=== PATIENT | male | born 1960 | race African-American/Black ===

== ENCOUNTER 2019-12-12 17:16 | Inpatient (IN) | payer OTHER ==
[~2019-12-12] VITALS: Ht 182.9 cm; Wt 101.6 kg
[~2019-12-12 17:16] MED LIST: NAPROSYN500 MG PO
--- NOTE | 2019-12-12 18:19 | NUR ---
PATIENT ARRIVED ON UNIT AT 1720 FROM [facility]. PATIENT ALERT AND ORIENTED X 4 - ABLE TO MAKE NEEDS KNOWN. PATIENT 59 YEAR OLD MALE WHO HAS HISTORY OF DEPRESSION WITH S/I. REPORTS HE HAS BEEN FEELING DEPRESSED RECENTLY AND CHECKED INTO [facility] LAST NIGHT TO DO SOME CRACK COCAINE IN AN ATTEMPT TO CHEER HIMSELF UP. POLICE WERE CALLED WHEN THE PATIENT TOLD THE MOT STAFF THE HE WANTED TO KILL HIMSELF. HER PLANNED TO OVERDOSE ON MEDICATIONS. PATIENT CONTINUED TO ENDORSE S/I AT ER. HAS BEEN TAKING MEDICATION INTERMITTENTLY BUT IS UNSURE WHAT THEY WERE. PATIENT OCCASIONAL SMOKER - USES CRACK COCAINE DAILY. HISTORY OF CVA - UNABLE TO DETERMINE TIME AND HYPERLIPIDEMAI - STATES AMBULATES WITH CANE. PATIENT SUFFERS FROM HTN - BPH AND GERD. PATIENT LIVES WITH PARENTS AND ON DISABILITY. ALL LABS DONE AT [facility] AND RESULTS IN CHART. PATIENT LAST BLOOD PRESSURE 137/76 WITH PULSE OF 80. PATIENT HAS TENDENCY OF BLOOD PRESSURES RUNNING HIGH. PATIENT NEG FOR COVID - TESTED AT [facility] AND OUR FACILITY WELL. EKG DONE AND IN CHART.
[2019-12-12] MEDS ORDERED: ASA81BEC PO (18:21)
[2019-12-12] MEDS ORDERED: NORVASC 2.5 MG2.5 M1 PO (18:22)
--- NOTE | 2019-12-12 18:23 | NUR ---
PATIENT'S ADMIT MEDICATION CLARIFIED WITH DR. FLORES. HE SAID NO TO PROPRANOLOL, SEROQUEL, VIT D, AND OMEPRAZOLE. HOSPITALIST DR. GOMEZ CONSULTED.
[2019-12-12 18:28] VITALS: BP 185/112
--- NOTE | 2019-12-12 22:50 | NUR ---
ASSUMED CARE ON 12/12/19 @ 19:00, IN BED ORIENTED TO PERSON, PLACE AND DISORIENTED TO TIME. WORRIED ABOUT HIS CAR. RATES DEPRESSION @ 02/03, AND ANXIETY @12/04. REPORTS WANTS TO GO TO "[employer]", WORRIED ABOUT CAR AND REPORTS CAR IS [address] [place] [facility]. TOOK MEDS WHOLE WITH WATER. USING A WALKER TO AMBULATE. TAKES MEDS WHOLE WITH WATER. WILL CONTINUE TO MONITOR Q 12 MINUTES FOR PATIENT SAFETY.
[2019-12-13 05:42] VITALS: BP 185/112
--- NOTE | 2019-12-13 09:59 | NUR ---
FAXED FACE SHEET TO JESÚS AT [facility] TO SEE IF PT'S MEDICAID IS ACTIVE RECEIVED CONFIRMATION.
--- NOTE | 2019-12-13 15:07 | NUR ---
Assume patient care around 7am. patient alert and cooperative. denied pain, no n/v, walked in the [address] with steady gait; taking pills whole with water. health assessment without abnormalities other than previously noted. patient is lying in bed with eyes closed, chest up and down. will keep monitoring.
[2019-12-13 19:53] VITALS: BP 152/92
[2019-12-13 22:00] VITALS: BP 152/92
--- NOTE | 2019-12-14 01:11 | NUR ---
Assumed care of patient this pm shift. Patient in good spirits. Patient alert and oriented to self, place, time, and situation. Patient denies pain. Patient denies hi/si. Patient takes medications whole with fluids. Patients assessment shows clear breath sounds, active bowel sounds, and s1 s2 heard with auscultation. Patient ambulates without assistance and has a steady gate. We will continue to monitor per protocol.
[2019-12-14 07:48] VITALS: BP 147/94
--- NOTE | 2019-12-14 09:37 | NUR ---
0700 ASSUMED CARE OF PATIENT, PATIENT IN ROOM AWAKE AT THAT TIME. 0800 PATIENT IN DAYROOM SITTING IN CHAIR FOR BREAKFAST. MEDICATIONS TAKEN WHOLE WITHOUT DIFFICULTY. PATIENT WATCHING TV . WILL CONTINUE TO OBSERVE.
--- NOTE | 2019-12-14 11:51 | NUR ---
JAYLYN reviewed pt's chart and saw that he receives psych services at [facility]. JAYLYN contacted JALYYN to inquire who is psych doctor is. No answer at the line. JAYLYN left a msg. JAYLYN team will continue to follow pt during his stay on this unit.
--- NOTE | 2019-12-14 18:46 | NUR ---
PATIENT STATES " I DO NOT BELONG HERE, I AM NOT CRAZY" PATIENT HAS INCREASED ANXIETY WITH NOISE OF ALL THE PATIENTS. PATIENT IS CALM AND COOPERATIVE WITH NO BEHAVIORS NOTED. DENIES SI/HI
[2019-12-14 19:33] VITALS: BP 166/102
--- NOTE | 2019-12-14 22:50 | H ---
[facility] [place] [address] HISTORY AND PHYSICAL Name: LOKESH ANDERSON Room #: 519B-B ADM IN M.R.#: [id number] Admission: 12/12/19 Attend Phys: Cain Kay DO Discharge: Date of : 56 Report #: [id number] THIS REPORT FOR: cc: FAM - No family physician/PCP FAM - Family physician unknown Cain Kay DO ~ CC: Cain QUINONES physician/PCP FAM unknown DATE OF SERVICE: 12/13/2019 INPATIENT PSYCHIATRIC EVALUATION ATTENDING PHYSICIAN: Cain Kay DO. FORENSIC DOCUMENT EXAMINER: Benjamin Jackson MD REASON FOR ADMISSION: Suicidal ideation in the setting of concomitant cocaine use due to chronic stimulant use disorder. SOURCES OF INFORMATION: Records from [facility], interview with the patient, charting notes from staff at [facility]. HISTORY OF PRESENT ILLNESS: A 59-year-old black male, , father of 3, currently living with his parents, had summon authorities yesterday due to suicidal ideation. The patient admits to a recent as in the last couple of days of cocaine use, he usually has 2 people, he knows who are chronic users of cocaine that bring him the substance when he summons them. The patient reports he smokes 2 cigarettes a day, does not have an alcohol problem. Denies other recreational drugs. The patient is well known for his cocaine use disorder. He has had several hospitalization treatments. He reports under Dr. Finn at [facility]. 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 His speech is slurred to a degree. [facility] gets individual and group counseling. I am not clear exactly who is a psychiatric medication provider is there. REVIEW OF SYSTEMS: From the Emergency Room at [facility]: CONSTITUTIONAL: Negative. SKIN: Negative. EYES: Negative. EAR, NOSE, MOUTH, THROAT: Negative. RESPIRATORY: Negative. [facility] [address] [place] [address] HISTORY AND PHYSICAL Name: LOKESH ANDERSON Room #: 519B-B ADM IN M.R.#: [id number] Admission: 12/12/19 Attend Phys: Cain Kay DO Discharge: Date of : 56 Report #: [id number] CARDIOVASCULAR: Negative. GASTROINTESTINAL: Negative. GENITOURINARY: Negative. MUSCULOSKELETAL: Uses a walker. NEUROLOGIC: Negative. PSYCHIATRIC: He was positive for the SI, not now. ENDOCRINE: Negative. HEMATOLOGIC-LYMPHATIC: Negative. ALLERGIES- IMMUNOLOGIC: Negative. HOME MEDICATIONS: Are noted to be tamsulosin 0.8 mg p.o. daily, sertraline 150 mg p.o. daily, Seroquel 200 mg tablet, omeprazole 40 mg tablet, ergocalciferol 50,000 International Units oral tablet. Also, Protonix, amlodipine, aspirin, atorvastatin, finasteride, gabapentin, prazosin, propranolol. After reconciling that as I think there is confusion, he is taking prazosin 1 mg at home, I have already increased that to 2 mg here. Sertraline is currently 150 mg daily, we will continue that dose. Finasteride 5 mg p.o. daily, atorvastatin 20 mg oral daily, aspirin 81 mg p.o. daily, amlodipine 10 mg oral daily, Protonix 40 mg oral daily, trazodone 50 mg p.o. at bedtime, I will make that p.r.n. Tamsulosin 0.8 mg p.o. daily. Gabapentin is currently 300 mg b.i.d., I think we will increase that to 400 mg p.o. b.i.d. given its properties with addiction and mood stabilization. I did have discussion with him about the amount of medications and frequency of taking them if that is a known trigger with substance use disorder patients so that certainly is a consideration in approaching his pharmacology. PAST MEDICAL HISTORY: Reports cerebrovascular accident, osteoarthritis, they put him on social security disability. Additional medical history information is as follows and the stroke type is cerebellar stroke, gastroesophageal reflux disease, benign prostatic hypertrophy, hypertension, hyperlipidemia, history of MRSA infection, patellofemoral syndrome, vitamin D deficiency and past history of obesity, though now he is borderline with a BMI of 30.4. He had a negative COVID-19 test to [facility]. PAST SURGICAL HISTORY: Includes tonsillectomy and bilateral knee arthrocentesis. SOCIAL HISTORY: Lives with his parents, but wanting to move out. He states he does no longer have a home. He would like to live in the [facility]. I did discuss with him I was not sure the current sobriety requirement. The hospitalist noted he was a current every-day smoker, smokes a quarter of a pack until meet 2 cigarettes. He has a 15 plus pack year history of smoking. He denies any alcohol use; however, reports struggling with alcoholism prior to 5 years ago. In addition to the crack cocaine use when he is depressed, he reports marijuana use. Also, the patient noted he began using cocaine in his 30s. He denies substance use disorders in the family. Mom is healthy. Dad is [address] [place] [address] HISTORY AND PHYSICAL Name: LOKESH ANDERSON Room #: 519B-B ADM IN M.R.#: [id number] Admission: 12/12/19 Attend Phys: Cain Kay DO Discharge: Date of : 56 Report #: [id number] with cardiac disease. Both parents were living so that fact we will need to clarify, has one sister who has unknown medical conditions. Three children, he states are 7, 10 and 17. I am surprised he has a 7-year-old as he gave me a somewhat inconsistent history of being for 4 years, but all the children have the same mother. ALLERGIES: No known allergies. Physical exam was grossly normal, done by Ms. Kulkarni. I will review the laboratories that were obtained at [facility] for this patient. These were done on 12/12/2019. Sodium 139, potassium 3.9, chloride 102, bicarbonate 21, anion gap 16, glucose 92, BUN 13, creatinine 0.68, GFR -Chadian greater than 9 and calcium 8.7, osmolality 288. NT-proBNP 310. Troponin T less than 0.01, white count 11.60, hemoglobin 14.3, hematocrit 43.8, platelets 176,000. Urine drug screen was positive for cocaine, otherwise negative. It looks like they did do a chest x-ray, I am looking for the results of that and I do not have that handy. The patient was not complaining of respiratory symptomatology and lungs were clear. There was an electrocardiogram done at [facility] yesterday at 0800 hours. It showed a ventricular rate 66, MD interval 150, QTC 400. He was in sinus rhythm, no signs of STEMI seen by myself or the Emergency Room physician that signed it. CURRENT PSYCHIATRIC TREATMENT: Sees Dr. James at [facility], has a residential case manager. Apparently, he checked into a hotel last night and used crack cocaine to address his depression, so I did not do it at his parents' house and he feels helpless with thoughts of overdosing on medications, again that is reason for admission, looks like the patient requested [email or web address], but they reported back to [place] that they did not have a bed. Vital signs today are as follows: Temperature 98.2, pulse 79, respirations 18, BP was initially 185/112 at 5:40 this morning and at 8:56, it had decreased to 135/88. I would kind of question that blood pressure, it was the same that was recorded at 6:30 last night. It looks like he has not been seen here at [place] since 2016. Interestingly, in 2016, the screen positive for cocaine. Also in 2010, it looks like he was referred to [place] for suicidal ideation. Interestingly, does not look like they had a positive drug screen back in 2010. PHYSICAL EXAMINATION: Uses a walker somewhat older than stated age appearing. MENTAL STATUS EXAMINATION: This is a well-developed, unkempt black male appearing older than stated age. Attention fair. Concentration fair. Speech [facility] [address] [place] [address] HISTORY AND PHYSICAL Name: ANDERSON,LOKESHLEANDRO MENDEZ Room #: 519B-B ADM IN M.R.#: [id number] Admission: 12/12/19 Attend Phys: Cain Kay, DO Discharge: Date of : 56 Report #: [id number] slurred. Reports this is baseline. No psychomotor agitation. No psychomotor retardation. Thought process is linear and goal directed. Thought content focused on discharge, going to [facility], subject matter such as this. Denied suicidal or homicidal ideation. Endorse some hopelessness. Denied hopelessness. Memory not formally tested today. I did order common evaluation of living skills as he is wanting to live fairly independently. Mood and affect were congruent, constricted. Reduced range. Insight limited. Judgment limited. Fund of knowledge, no greater than average. FORMULATION: A 59-year-old black male admitted for suicidal ideation, status post recent cocaine ingestion. The patient does have chronic major depression. [facility] this as well as substance use disorder. DIAGNOSES: At this time, major depressive disorder, recurrent, at least moderate degree; substance use disorder for stimulants, cocaine, severe with repeated relapse despite addiction; Psychiatry hospitalization and intervention at least twice in the past at [facility]. PLAN: Evaluate, stabilize, obtain collateral. Regarding his medications, he did endorse being bothered by nightmares, so increase his prazosin at 2 mg at night. Regarding relapse prevention and mood stabilization, I increased the gabapentin from 300 b.i.d. to 400 b.i.d. I am avoiding a third dose during the day due to the more ingestion of pills I view as a more trigger for his addiction proclivity to use. ESTIMATED LENGTH OF STAY: 3-5 days. POSITIVES: He is insured, has some supportive family. NEGATIVES: Chronic cocaine use. He already has end-organ damage, likely from his cocaine, namely the stroke and the habitual nature of his use will be difficult to turn him away from. Time spent on interview, review of records, coordination of care is at least 60 minutes. <ELECTRONICALLY SIGNED> By: Cain Kay, 12/14/19 [id number] Cain Kay DO /nt
[2019-12-14 23:05] VITALS: BP 152/88
--- NOTE | 2019-12-15 05:14 | NUR ---
Assumed care of pt @ 1900. Pt calm et cooperative with pleasant demeanor this shift. Took medications whole without difficulty. Isolated in room most of shift. Ambulates the halls ad gamal with assistance of walker et steady gait. B/P elevated but was WNL on recheck. Health assessment with no abnormalities noted at this time. Denies SI/HI. Currently resting in bed with eyes closed. Will continue to monitor per protocol.
[2019-12-15 09:36] VITALS: BP 160/103
--- NOTE | 2019-12-15 14:36 | NUR ---
JAYLYN contacted [facility] and confirmed that pt has a psych appt with Dr. Barajas December 27 @ 12:40 via phone. She also contacted the [facility] multiple times to identify their intake process for substance abuse tx and did not get a response. JAYLYN spoke with pt and asked where he wants to d/c too. He explained that he has burned his bridge with his mother and is not at this time welcome. He asked SW to call his mom Anisa Clayton at [phone].
[2019-12-15 16:45] VITALS: BP 160/103
--- NOTE | 2019-12-15 17:45 | NUR ---
PATIENT COMMUNICATING WITH OTHERS WELL, PATIENT WATCHING TV AT THIS TIME. PATIENT AWARE OF NOTIFING STAFF WHEN NEEDING TO GO TO ROOM OR AMBULATE. PATIENT IS A FALL RISK. YELLOW SHIRT ON, YELLOW SOCK IN PLACE WITH CHAIR/BED ALARM IN PLACE. PATIENT IS AWARE OF BEING DC'D TOMORROW. PATIENT DENIES NEEDS.
[2019-12-15 19:40] VITALS: BP 159/91
[2019-12-15 21:15] VITALS: BP 159/91
--- NOTE | 2019-12-16 04:29 | NUR ---
Assumed pt care at 1900. Pt A/OX4,VSS.Denies SI/HI on assessment and verbalized feeling excited about discharge. Up with a RW,needs reminders to wait for staff before getting up. Denies pain on assessment but reports he has arthritis to meghann knees and has been on disability because of that. Fall precautions in place,pt been resting w/o any distress after taking HS meds. Will continue to monitor pt.
[2019-12-16 07:50] VITALS: BP 149/84
[2019-12-16 08:30] VITALS: BP 149/84
--- NOTE | 2019-12-16 09:16 | NUR ---
0700 ASSUMED CARE OF PATIENT, PATIENT IN ROOM AT THAT TIME. PATIENT OUT TO DAYROOM FOR BREAKFAST SITTING AT TABLE AND COMMUNICATING WELL WITH OTHERS. DENIES NEEDS AT THAT TIME. 0910 PATIENT ASKS TO SHAVE AND GET READY TO GO HOME. PATIENT DENIES NEEDS LUNG SOUNDS CLEAR, BS ACTIVE, DENIES SI/HI. PATIENT AMBULATES WITH WALKER WITH STEADY GAIT. DC IS SCHEDULED FOR 10AM . WILL CONTINUE TO OBSERVE
[2019-12-16] MEDS ORDERED: LIPITOR 20 MG T20 M1 PO (09:41)
[2019-12-16] MEDS ORDERED: FLOMAX0.4 MG PO (09:41)
[2019-12-16] MEDS ORDERED: NORVASC10 MG PO (09:42)
[2019-12-16] MEDS ORDERED: PRAZOSIN HCL1 MG PO (09:42)
[2019-12-16] MEDS ORDERED: ASPIR 8181 MG PO (09:43)
[2019-12-16] MEDS ORDERED: NEURONTIN 400400 M1 PO (09:43)
[2019-12-16] MEDS ORDERED: PROTONIX40 M1 PO (09:44)
[2019-12-16] MEDS ORDERED: TRAZODONE HCL50 MG PO (09:44)
[2019-12-16] MEDS ORDERED: ZOLOFT100 MG PO (09:44)
[2019-12-16] MEDS ORDERED: PROSCAR 5MG TABL5 MG PO (09:45)
--- NOTE | 2019-12-16 10:15 | NUR ---
JAYLYN D/C note JAYLYN faxed pt's discharge docs to [facility].
--- NOTE | 2019-12-16 10:53 | NUR ---
1000 DC INSTRUCTIONS GIVEN TO PATIENT, PATIENT VOICED UNDERSTANDING. SCRIPTS FAXED TO PATIENT PHARMACY [facility]. PATIENT DC VIA WC TO [facility] ACCOMPANIED BY STAFF. PATIENT BELONGING ARE IN HAND (BAGS X2) .
--- NOTE | 2019-12-19 17:14 | D ---
[facility] [place] [address] DISCHARGE SUMMARY Name: LOKESH ANDERSON Room #: 519B-B DIS IN M.R.#: [id number] Admission: 12/12/19 Attend Phys: Cain Kay DO Discharge: 12/16/19 Date of : 56 Report #: [id number] THIS REPORT FOR: cc: FAM - No family physician/PCP FAM - Family physician unknown Cain Kay DO ~ THIS REPORT FOR: //name// CC: Cain QUINONES physician/PCP FAM unknown DATE OF SERVICE: 12/16/2019 INPATIENT PSYCHIATRIC DISCHARGE SUMMARY ATTENDING PSYCHIATRIST: Cain Kay DO. COMPENSATION/BENEFITS SPECIALIST: Satnam Luciano MD DISCHARGE DIAGNOSES: Major depressive disorder, recurrent, severe degree, improved; substance use disorder for cocaine, moderate to severe degree; cocaine intoxication, resolved. ADDITIONAL DIAGNOSES: Hypertension, hyperlipidemia, tobacco use disorder, insomnia, vitamin D deficiency, gastroesophageal reflux disease, history of cerebellar stroke. DISCHARGE DIET: Heart healthy. ACTIVITY LEVEL: As tolerated. Use of walker is encouraged. The patient will be discharging to her mother's home. The patient has crisis information from [facility] where he is a client. The patient has psychiatric followup, noted to be 12/27 at 12:[address] Barajas at [facility], living initially with his mother, Anisa. DISCHARGE MEDICATIONS: Which were faxed to the [facility] at [facility] does request tamsulosin 0.8 mg at bedtime; atorvastatin 20 mg p.o. daily for hyperlipidemia; prazosin 2 mg p.o. at bedtime for nightmares, this was an increase of dose from 1 to 2 mg this admission; amlodipine 10 mg p.o. daily for hypertension; aspirin 81 mg p.o. daily for heart protection; gabapentin 400 mg p.o. twice per day for relapse prevention, anxiety and mood stabilization; sertraline 150 mg p.o. daily for depression; trazodone 50 mg p.o. at bedtime; Protonix 40 mg p.o. daily for GERD and finasteride 5 mg p.o. daily for BPH. [facility] [address] [place] [address] DISCHARGE SUMMARY [facility] Room #: 519B-B DIS IN .R.#: [id number] Admission: 12/12/19 Attend Phys: Cain Kay DO Discharge: 12/16/19 Date of : 56 Report #: [id number] REASON FOR ADMISSION: Back on the or so, a 59-year-old black male sent from [facility] to the [facility]. The patient was apparently in a motel room, had done cocaine, feeling depressed, suicidal and called 911. HOSPITAL COURSE: The patient was admitted to Geriatric Psychiatry Unit. The patient's medications were reviewed. He was having breakthrough nightmares even when he did not use cocaine, so increased the prazosin from 1 to 2 mg at bedtime, tolerated this well; gabapentin was at a lower dose, I think 200 or 300 mg a day, increased this to 400 mg a day to get a little more anxiolytic effect; sertraline continue 150 mg p.o. daily. His depression precipitously improved. The patient first of all lagged in the milieu, in particular with large amount of dementia. The patient's outreach and education social worker made aftercare arrangements with [facility]. The patient is desiring new housing; however, this is difficult to get in a short period of time right now. PHYSICAL EXAMINATION: VITAL SIGNS: At time of discharge, temperature 36.4, pulse 73, respirations 18, BP 149/84, O2 sat 97%. MUSCULOSKELETAL: He ambulates with walker. MENTAL STATUS EXAMINATION: This is a well-developed, tall black male, appearing at least stated age. Attention fair. Concentration fair. Speech, minor abnormalities at times, but generally coherent. Mood and affect were congruent and euthymic, future oriented. Denied SI or HI. Denied auditory, visual, or tactile hallucinations. Memory was not formally tested. Insight fair to limited. Judgment fair. Fund of knowledge lower than low average. PROGNOSIS: For this patient is guarded and will depend on him getting stable housing, engaging with the psychiatrist and primary care physician. <ELECTRONICALLY SIGNED> By: Cain Kay DO 12/19/19 1714 [id number] Cain Kay DO /nt
== END 2019-12-16 10:45 | disposition home or self-care (01) | DRG 885 ==
LOC: ER 17:16 → EDSTATUS 17:22 → SBH 17:27
PROVIDERS: ADMIT Psychiatry & Neurology Psychiatry
DX: F33.2 Major depressive disorder, recurrent severe without psychotic features (principal); R45.851 Suicidal ideations; T40.5X5A Adverse effect of cocaine, initial encounter; I10 Essential (primary) hypertension; E78.5 Hyperlipidemia, unspecified; K21.9 Gastro-esophageal reflux disease without esophagitis; F17.210 Nicotine dependence, cigarettes, uncomplicated; M19.90 Unspecified osteoarthritis, unspecified site; F14.10 Cocaine abuse, uncomplicated; F12.10 Cannabis abuse, uncomplicated; E55.9 Vitamin D deficiency, unspecified; N40.0 Benign prostatic hyperplasia without lower urinary tract symptoms; E66.9 Obesity, unspecified; F41.9 Anxiety disorder, unspecified; G47.00 Insomnia, unspecified; F10.20 Alcohol dependence, uncomplicated; Y92.89 Other specified places as the place of occurrence of the external cause; Z86.73 Personal history of transient ischemic attack (TIA), and cerebral infarction without residual deficits; Z68.30 Body mass index [BMI] 30.0-30.9, adult; Z90.49 Acquired absence of other specified parts of digestive tract; Z82.49 Family history of ischemic heart disease and other diseases of the circulatory system
CPT/HCPCS: 10880

== ENCOUNTER 2020-07-19 08:40 | Emergency (ER) | payer OTHER ==
[~2020-07-19] VITALS: Ht 182.9 cm; Wt 109.3 kg
[~2020-07-19 08:40] MED LIST changes: +ASA81BEC PO; +ASPIR 8181 MG PO; +FLOMAX0.4 MG PO; +LIPITOR 20 MG T20 M1 PO; +NEURONTIN 400400 M1 PO; +NORVASC 2.5 MG2.5 M1 PO; +NORVASC10 MG PO; +PRAZOSIN HCL1 MG PO; +PROSCAR 5MG TABL5 MG PO; +PROTONIX40 M1 PO; +TRAZODONE HCL50 MG PO; +ZOLOFT100 MG PO
[2020-07-19 08:53] LABS: ABSOLUTE NEUTROPHILS 5.6 thou/uL (1.4-8.2); BASOPHILS 0.8 % (0.0-2.0); EOSINOPHILS 1.5 % (0.0-3.0); HEMOGLOBIN 13.6 gm/dL (14.0-18.0); LYMPHOCYTES 18.5 % (24.0-44.0); MCHC 33.1 g/dL (28.0-37.0); MCV 90.7 fL (80.0-100.0); MONOCYTES 8.4 % (1.0-8.0); PLATELET COUNT 277 thou/uL (150-400); POLYS 70.8 % (36.0-66.0); RBC 4.52 mil/uL (4.50-6.00); RDW 15.6 % (10.5-14.5); WBC 7.9 thou/uL (4.0-11.0)
[2020-07-19 09:04] LABS: ANION GAP 9 mmol/L (7-16); BUN 13 mg/dL (7-18); CALCIUM 9.6 mg/dL (8.5-10.1); CHLORIDE 103 mmol/L (98-107); CO2 28 mmol/L (21-32); GLUCOSE 142 mg/dL (74-106); POTASSIUM 3.9 mmol/L (3.5-5.1); SODIUM 140 mmol/L (136-145)
[2020-07-19] MEDS ORDERED: MEMANTINE HCL5 MG PO (09:05)
[2020-07-19] MEDS ORDERED: FINASTERIDE5 MG PO (09:05)
[2020-07-19] MEDS ORDERED: PRAZOSIN HCL2 MG PO (09:05)
[2020-07-19] MEDS ORDERED: QUETIAPINE FUM100 MG PO (09:06)
[2020-07-19 09:13] LABS: TROPONIN-I <0.06 ng/mL (<0.06)
[2020-07-19 09:36] LABS: AMP/METHAMP Negative (Negative); BARBITURATES Negative (Negative); BENZODIAZEPINES Negative (Negative); COCAINE POSITIVE (Negative); METHADONE Negative (Negative); OPIATES Negative (Negative); PCP Negative (Negative)
--- NOTE | 2020-07-19 09:54 | EKG ---
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 [employer]: KEITH : 1960 Requested By: Sunny Sims Order Number: [id number] MD: Kevin Beauchamp Measurements Intervals [place] Rate: 73 P: -3 MO: 170 QRS: -10 QRSD: 92 T: 14 QT: 388 QTc: 428 Interpretive Statements Sinus rhythm Compared to ECG 10/01/2015 01:48:53 T-wave abnormality no longer present Electronically Signed On 07-19-2020 9:54:02 TREAD CUTTER by Kevin Beauchamp [email or web address] <ELECTRONICALLY SIGNED> By: Kevin Beauchamp MD, [facility] 07/19/20 0954 0845 0845 Kevin Beauchamp MD, FACC /EPI
[2020-07-19] MEDS ORDERED: NAPROSYN500 MG PO (15:03)
[2020-07-19 18:36] VITALS: BP 146/86
== END 2020-07-19 19:08 | disposition home or self-care (01) ==
LOC: ER 08:40
PROVIDERS: Emergency Medicine
DX: R07.89 Other chest pain (principal); Z20.828 Contact with and (suspected) exposure to other viral communicable diseases; I10 Essential (primary) hypertension; E78.5 Hyperlipidemia, unspecified; F32.9 Major depressive disorder, single episode, unspecified; F41.9 Anxiety disorder, unspecified; F12.20 Cannabis dependence, uncomplicated; F14.20 Cocaine dependence, uncomplicated; F17.210 Nicotine dependence, cigarettes, uncomplicated; Z79.899 Other long term (current) drug therapy; Z79.82 Long term (current) use of aspirin; Z86.73 Personal history of transient ischemic attack (TIA), and cerebral infarction without residual deficits; Z98.890 Other specified postprocedural states

== ENCOUNTER 2021-07-15 16:39 | Emergency (ER) | payer OTHER ==
[~2021-07-15] VITALS: Ht 185.4 cm; Wt 125.2 kg
--- NOTE | ~2021-07-15 | EMS ---
[address] [address] EMS Patient Care Report Name: LOKESH ANDERSON Room #: DEP Emmie#: [id number] Admission: 07/15/21 Attend Phys: Discharge: 07/15/21 Date of : 56 Report #: [id number] THIS REPORT FOR: //name// Report Transmitted: 07/17/2021 08:09 EMS Care Summary [place], [place]/[facility] Incident [id number] @ 07/15/2021 16:11 Incident Location [address] [place] [address] Patient LOKESH ANDERSON Male, 60 Years 1960 Patient Address Patient History Hypertension (HTN), Patient Allergies No known allergies, Patient Medications Gabapentin, Pantoprazole, Atorvastatin, Amlodipine, Chief Complaint soa Disposition Transported No Lights/[place] Dispatch Reason Breathing Problem Transported To [facility] Narrative EMS arrived on scene to find a 60 y/o male complaining of soa. The pt stated it had been interment for the last "few days" the pt stated the soa got worse when he moved. The pt denied chest pain. The pt spoke in full sentences, the pt had appropriate rate, rhythm and depth of respirations. Pt vitals monitored. Pt vitals stable. Pt condition did not change en route. Pt care transferred. Initial Vitals [address] [address] EMS Patient Care Report Name: LOKESH ANDERSON Room #: DEP [facility]#: [id number] Admission: 07/15/21 Attend Phys: Discharge: 07/15/21 Date of : 56 Report #: [id number] @16:29P: 70,R: 16,BP: 188/70,Pain: 0/10,GCS: 15,Revised Trauma: 12, @PTAP: 70,R: 16,BP: 162/100,Pain: 0/10,GCS: 15,SpO2: 99,Revised Trauma: 12, Assessments @16:24MENTAL:No Abnormalities,SKIN:No Abnormalities,HEENT:Head/Face: No Abnormalities,Eyes: No Abnormalities,Neck/Airway: No Abnormalities,LUNG SOUNDS:General: No Abnormalities,Left Upper: No Abnormalities,Right Upper: No Abnormalities,Left Lower: No Abnormalities,Right Lower: No Abnormalities,ABDOMEN:General: No Abnormalities,Left Upper: No Abnormalities,Right Upper: No Abnormalities,Left Lower: No Abnormalities,Right Lower: No Abnormalities,PELVIS//GI:No Abnormalities,EXTREMITIES:Left Arm: No Abnormalities,Right Arm: No Abnormalities,Left Leg: No Abnormalities,Right Leg: No Abnormalities,PULSE:NEURO:No Abnormalities, Impression Acute Respiratory Distress (Dyspnea) Procedures @16:24 ALS Assessment Response: UnchangedSucceeded Timeline 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 It is designed to provide pertinent information for the following purposes: continuity of care, clinical quality, and state data reporting. The complete legal record is available to ED staff and administrators of the receiving hospital in [employer]'s Patient Tracker. All data is provided "as is."
[~2021-07-15 16:39] MED LIST changes: +FINASTERIDE5 MG PO; +MEMANTINE HCL5 MG PO; +PRAZOSIN HCL2 MG PO; +QUETIAPINE FUM100 MG PO
[2021-07-15] MEDS ORDERED: TRAZODONE HCL100 MG PO (16:54)
[2021-07-15] MEDS ORDERED: SERTRALINE HCL100 MG PO (16:54)
[2021-07-15 17:46] LABS: ABSOLUTE NEUTROPHILS 5.8 thou/uL (1.4-8.2); BASOPHILS 0.6 % (0.0-2.0); EOSINOPHILS 2.7 % (0.0-3.0); HEMATOCRIT 42.2 % (42.0-52.0); HEMOGLOBIN 13.9 gm/dL (14.0-18.0); LYMPHOCYTES 21.9 % (24.0-44.0); MCH 29.7 pg (26.0-34.0); MCHC 32.9 g/dL (28.0-37.0); MCV 90.4 fL (80.0-100.0); MONOCYTES 9.7 % (1.0-8.0); PLATELET COUNT 201 thou/uL (150-400); POLYS 65.1 % (36.0-66.0); RBC 4.67 mil/uL (4.50-6.00); WBC 8.9 thou/uL (4.0-11.0)
[2021-07-15 17:53] LABS: CALCIUM 8.6 mg/dL (8.5-10.1); POTASSIUM 4.2 mmol/L (3.5-5.1)
[2021-07-15 18:03] LABS: ALBUMIN 3.5 g/dL (3.4-5.0); TOTAL BILIRUBIN 0.5 mg/dL (0.2-1.0); TOTAL PROTEIN 7.3 g/dL (6.4-8.2)
[2021-07-15 19:38] VITALS: BP 167/83
--- NOTE | 2021-07-16 08:55 | EKG ---
[facility] [place] [employer] [address] ELECTROCARDIOGRAM REPORT Name: LOKESH ANDERSON [id number] Admission: 07/15/21 Attend Phys: Discharge: 07/15/21 Date of : 56 Report #: [id number] [facility] [place] ED Test Date: 2021-07-15 Test Time: 17:10:30 Pat Name: LOKESH ANDERSON Department: Room: Gender: Director Of Online Merchandising: TRIPP : 1960 Requested By: Martin Ramos Order Number: [id number] MD: Bunny March Measurements Intervals [place] Rate: 69 P: 22 MN: 181 QRS: 6 QRSD: 90 T: 5 QT: 367 QTc: 393 Interpretive Statements Sinus rhythm Ventricular bigeminy Borderline T abnormalities, lateral leads Compared to ECG 07/19/2020 08:45:09 Ventricular premature complex(es) now present T-wave abnormality now present Electronically Signed On 07-16-2021 8:55:26 TECHNOLOGY DIRECTOR by Bunny March [email or web address] <ELECTRONICALLY SIGNED> By: Bunny March MD, [facility] 07/16/21 0855 1710 1710 Bunny March MD, [facility] /EPI
== END 2021-07-15 19:41 | disposition home or self-care (01) ==
LOC: ER 16:39
PROVIDERS: Emergency Medicine
DX: R06.02 Shortness of breath (principal); Z20.822 Contact with and (suspected) exposure to COVID-19; R06.00 Dyspnea, unspecified; I10 Essential (primary) hypertension; F17.210 Nicotine dependence, cigarettes, uncomplicated; Z79.899 Other long term (current) drug therapy

== ENCOUNTER 2021-07-25 16:18 | Emergency (ER) | payer OTHER ==
[~2021-07-25] VITALS: Ht 193 cm; Wt 125.2 kg
--- NOTE | ~2021-07-25 | EMS ---
[address] [address] EMS Patient Care Report Name: LOKESH ANDERSON Room #: REG JOSEPH Olea#: [id number] Admission: 07/25/21 Attend Phys: Discharge: Date of : 56 Report #: [id number] THIS REPORT FOR: //name// Report Transmitted: 07/25/2021 16:09 EMS Care Summary [place], [place]/[facility] Incident [id number] @ 07/25/2021 15:34 Incident Location [address] [place] [address] Patient LOKESH ANDERSON Male, 61 Years 1960 Patient Address [address] [place] [id number] Patient History Hypertension (HTN),Substance Abuse,Hyperlipidemia,Gastro-Esophageal Reflux Disease (GERD),Depression,Osteoarthritis, Patient Allergies No known allergies, Patient Medications Amlodipine, Finasteride, Tamsulosin, Sertraline, Celebrex, Pantoprazole, Breonesin, Atorvastatin, Trazodone, Albuterol, Gabapentin, Memantine, Chief Complaint SHORTNESS OF BREATH Disposition Transported No Lights/[place] Dispatch Reason Falls Transported To [facility] Narrative S: 61 Y/O MALE FOUND SITTING IN A CHAIR AT A LOCAL INTERMEDIATE REPORTING SHORTNESS OF BREATH FOR THE PAST WEEK AND A HALF. TODAY, HE TALKED TO HIS DOCTOR WHO SUGGESTED HE PROCEED TO THE ER FOR EVALUATION AND TREATMENT. PATIENT [address] [address] EMS Patient Care Report Name: LOKESH ANDERSON Room #: REG [facility]#: [id number] Admission: 07/25/21 Attend Phys: Discharge: Date of : 56 Report #: [id number] IS ALERT AND ORIENTED X 4 AND IS ABLE TO SPEAK FULL SENTENCES BETWEEN BREATHS WITHOUT DIFFICULTY. PATIENT DENIES CHEST PAIN, NAUSEA, VOMITING, WEAKNESS, DIAPHORESIS, OR VISION CHANGES. HE STATES HE GETS PROFOUNDLY SHORT OF BREATH WITH ANY EXERTION. O: SEE ASSESSMENT SECTION. A: DYSPNEA, NON PERFUSED BIGEMINAL CARDIAC RHYTHM. P: SEE FLOW CHART SECTION. Initial Vitals @PTAP: 37,R: 24,BP: 154/90,Pain: 0/10,GCS: 15,SpO2: 97,Revised Trauma: 12, @15:47P: 37,R: 24,BP: 167/88,Pain: 0/10,GCS: 15,SpO2: 96,Revised Trauma: 12,AL Suspected: false @16:01P: 36,R: 24,BP: 159/82,Pain: 0/10,GCS: 15,CO: 3,SpO2: 98,Revised Trauma: 12,AL Suspected: false @16:12P: 35,R: 24,BP: 163/85,Pain: 0/10,GCS: 15,CO: 3,SpO2: 98,Revised Trauma: 12,AL Suspected: false @15:54P: 38,R: 24,BP: 173/102,Pain: 0/10,GCS: 15,Revised Trauma: 12,AL Suspected: false Assessments @15:40MENTAL:Person Oriented,Event Oriented,Time Oriented,Place Oriented,SKIN:HEENT:Eyes: Left Pupil: 4-mm,Eyes: Right Pupil: 4-mm,LUNG SOUNDS:ABDOMEN:PELVIS//GI:EXTREMITIES:Capillary Refill: Right Upper: < 2 Sec,PULSE:Radial: 2+ Normal,NEURO: Impression Cardiac arrhythmia/dysrhythmia Procedures @15:52 IV Therapy - Saline Lock 0cc (20 ga) Site: Hand-Right Response: UnchangedFailed @16:00 IV Therapy - Saline Lock 0cc (22 ga) Site: Hand-Left Response: UnchangedFailed @15:55 IV Therapy - Saline Lock 1cc (22 ga) Site: Hand-Right Response: UnchangedFailed @15:50 12-Lead ECG Response: UnchangedSucceeded @15:49 IV Therapy - Saline Lock 0cc (20 ga) Site: Forearm-Left Response: UnchangedFailed @15:51 Oxygen FlowRate: 2 Device: Nasal Cannula (NC) Response: UnchangedSucceeded @15:48 3-Lead ECG Response: UnchangedSucceeded @15:40 ALS Assessment Response: UnchangedSucceeded @15:45 Stretcher Response: Unchanged [facility] [address] [place] [address] EMS Patient Care Report Name: LOKESH ANDERSON Room #: REG [facility]#: [id number] Admission: 07/25/21 Attend Phys: Discharge: Date of : 56 Report #: [id number] 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,BP: 154/90 M,PULSE: 37,RR: 24 R,SPO2: 97 Ox,ETCO2: ,BG: ,PAIN: 0,GCS: 15, 15:33,Call Received 15:33,Dispatch Notified 15:34,Dispatched 15:34,En Route 15:37,On Scene 15:40,At Patient 15:40,ALS Assessment,Response: UnchangedSucceeded, 15:45,Stretcher,Response: Unchanged 15:47,BP: 167/88 M,PULSE: 37,RR: 24 R,SPO2: 96 Ox,ETCO2: ,BG: ,PAIN: 0,GCS: 15, 15:48,3-Lead ECG,Response: UnchangedSucceeded, 15:49,IV Therapy - Saline Lock 0cc 20 ga Site: Forearm-Left,Response: UnchangedFailed, 15:50,12-Lead ECG,Response: UnchangedSucceeded, 15:51,Oxygen FlowRate: 2 Device: Nasal Cannula (NC) Response: UnchangedSucceeded, 15:52,IV Therapy - Saline Lock 0cc 20 ga Site: Hand-Right,Response: UnchangedFailed, 15:54,BP: 173/102 M,PULSE: 38,RR: 24 R,SPO2: Ox,ETCO2: ,BG: ,PAIN: 0,GCS: 15, 15:55,IV Therapy - Saline Lock 1cc 22 ga Site: Hand-Right,Response: UnchangedFailed, 16:00,IV Therapy - Saline Lock 0cc 22 ga Site: Hand-Left,Response: UnchangedFailed, 16:01,BP: 159/82 M,PULSE: 36,RR: 24 R,SPO2: 98 Ox,ETCO2: ,BG: ,PAIN: 0,GCS: 15, 16:04,Depart Scene 16:12,BP: 163/85 M,PULSE: 35,RR: 24 R,SPO2: 98 Ox,ETCO2: ,BG: ,PAIN: 0,GCS: 15, 16:13,At Destination 16:46,Call Closed Disclaimer v1.1 Copyright 2020 [employer] This EMS Care Summary contains data elements from the applicable legal record (which may be displayed differently). It is designed to provide pertinent information for the following purposes: continuity of care, clinical quality, and state data reporting. The complete legal record is available to ED staff and administrators of the receiving hospital in [facility]'s Patient Tracker. All data is provided "as is."
--- NOTE | ~2021-07-25 | EMS ---
[address] [address] EMS Patient Care Report Name: LOKESH ANDERSON Room #: DEP JOSEPH Olea#: [id number] Admission: 07/25/21 Attend Phys: Discharge: 07/25/21 Date of : 56 Report #: [id number] THIS REPORT FOR: //name// Report Transmitted: 07/26/2021 13:11 EMS Care Summary [place], [place]/[facility] Incident [id number] @ 07/25/2021 15:34 Incident Location [address] [place] [address] Patient LOKESH ANDERSON Male, 61 Years 1960 Patient Address [address] [place] [address] Patient History Hypertension (HTN),Substance Abuse,Hyperlipidemia,Gastro-Esophageal Reflux Disease (GERD),Depression,Osteoarthritis, Patient Allergies No known allergies, Patient Medications Amlodipine, Finasteride, Tamsulosin, Sertraline, Celebrex, Pantoprazole, Breonesin, Atorvastatin, Trazodone, Albuterol, Gabapentin, Memantine, Chief Complaint SHORTNESS OF BREATH Disposition Transported No Lights/[place] Dispatch Reason Falls Transported To [facility] Narrative S: 61 Y/O MALE FOUND SITTING IN A CHAIR AT A LOCAL CUSTODIAL REPORTING SHORTNESS OF BREATH FOR THE PAST WEEK AND A HALF. TODAY, HE TALKED TO HIS DOCTOR WHO SUGGESTED HE PROCEED TO THE ER FOR EVALUATION AND TREATMENT. PATIENT [address] [address] EMS Patient Care Report Name: LOKESH ANDERSON Room #: DEP [facility]#: [id number] Admission: 07/25/21 Attend Phys: Discharge: 07/25/21 Date of : 56 Report #: [id number] IS ALERT AND ORIENTED X 4 AND IS ABLE TO SPEAK FULL SENTENCES BETWEEN BREATHS WITHOUT DIFFICULTY. PATIENT DENIES CHEST PAIN, NAUSEA, VOMITING, WEAKNESS, DIAPHORESIS, OR VISION CHANGES. HE STATES HE GETS PROFOUNDLY SHORT OF BREATH WITH ANY EXERTION. O: SEE ASSESSMENT SECTION. A: DYSPNEA, NON PERFUSED BIGEMINAL CARDIAC RHYTHM. P: SEE FLOW CHART SECTION. Initial Vitals @PTAP: 37,R: 24,BP: 154/90,Pain: 0/10,GCS: 15,SpO2: 97,Revised Trauma: 12, @15:47P: 37,R: 24,BP: 167/88,Pain: 0/10,GCS: 15,SpO2: 96,Revised Trauma: 12,VA Suspected: false @16:01P: 36,R: 24,BP: 159/82,Pain: 0/10,GCS: 15,CO: 3,SpO2: 98,Revised Trauma: 12,VA Suspected: false @16:12P: 35,R: 24,BP: 163/85,Pain: 0/10,GCS: 15,CO: 3,SpO2: 98,Revised Trauma: 12,VA Suspected: false @15:54P: 38,R: 24,BP: 173/102,Pain: 0/10,GCS: 15,Revised Trauma: 12,VA Suspected: false Assessments @15:40MENTAL:Place Oriented,Time Oriented,Event Oriented,Person Oriented,SKIN:HEENT:Eyes: Right Pupil: 4-mm,Eyes: Left Pupil: 4-mm,LUNG SOUNDS:ABDOMEN:PELVIS//GI:EXTREMITIES:Capillary Refill: Right Upper: < 2 Sec,PULSE:Radial: 2+ Normal,NEURO: Impression Cardiac arrhythmia/dysrhythmia Procedures @15:52 IV Therapy - Saline Lock 0cc (20 ga) Site: Hand-Right Response: UnchangedFailed @16:00 IV Therapy - Saline Lock 0cc (22 ga) Site: Hand-Left Response: UnchangedFailed @15:55 IV Therapy - Saline Lock 1cc (22 ga) Site: Hand-Right Response: UnchangedFailed @15:50 12-Lead ECG Response: UnchangedSucceeded @15:49 IV Therapy - Saline Lock 0cc (20 ga) Site: Forearm-Left Response: UnchangedFailed @15:51 Oxygen FlowRate: 2 Device: Nasal Cannula (NC) Response: UnchangedSucceeded @15:48 3-Lead ECG Response: UnchangedSucceeded @15:40 ALS Assessment Response: UnchangedSucceeded @15:45 Stretcher Response: Unchanged [address] [address] EMS Patient Care Report Name: LOKESH ANDERSON [facility] [id number] Admission: 07/25/21 Attend Phys: Discharge: 07/25/21 Date of : 56 Report #: [id number] 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,BP: 154/90 M,PULSE: 37,RR: 24 R,SPO2: 97 Ox,ETCO2: ,BG: ,PAIN: 0,GCS: 15, 15:33,Call Received 15:33,Dispatch Notified 15:34,Dispatched 15:34,En Route 15:37,On Scene 15:40,At Patient 15:40,ALS Assessment,Response: UnchangedSucceeded, 15:45,Stretcher,Response: Unchanged 15:47,BP: 167/88 M,PULSE: 37,RR: 24 R,SPO2: 96 Ox,ETCO2: ,BG: ,PAIN: 0,GCS: 15, 15:48,3-Lead ECG,Response: UnchangedSucceeded, 15:49,IV Therapy - Saline Lock 0cc 20 ga Site: Forearm-Left,Response: UnchangedFailed, 15:50,12-Lead ECG,Response: UnchangedSucceeded, 15:51,Oxygen FlowRate: 2 Device: Nasal Cannula (NC) Response: UnchangedSucceeded, 15:52,IV Therapy - Saline Lock 0cc 20 ga Site: Hand-Right,Response: UnchangedFailed, 15:54,BP: 173/102 M,PULSE: 38,RR: 24 R,SPO2: Ox,ETCO2: ,BG: ,PAIN: 0,GCS: 15, 15:55,IV Therapy - Saline Lock 1cc 22 ga Site: Hand-Right,Response: UnchangedFailed, 16:00,IV Therapy - Saline Lock 0cc 22 ga Site: Hand-Left,Response: UnchangedFailed, 16:01,BP: 159/82 M,PULSE: 36,RR: 24 R,SPO2: 98 Ox,ETCO2: ,BG: ,PAIN: 0,GCS: 15, 16:04,Depart Scene 16:12,BP: 163/85 M,PULSE: 35,RR: 24 R,SPO2: 98 Ox,ETCO2: ,BG: ,PAIN: 0,GCS: 15, 16:13,At Destination 16:46,Call Closed Disclaimer v1.1 Copyright 2020 [employer] This EMS Care Summary contains data elements from the applicable legal record (which may be displayed differently). It is designed to provide pertinent information for the following purposes: continuity of care, clinical quality, and state data reporting. The complete legal record is available to ED staff and administrators of the receiving hospital in [employer]'s Patient Tracker. All data is provided "as is."
[~2021-07-25 16:18] MED LIST changes: +SERTRALINE HCL100 MG PO; +TRAZODONE HCL100 MG PO
[2021-07-25 17:00] LABS: ABSOLUTE NEUTROPHILS 6.6 thou/uL (1.4-8.2); BASOPHILS 0.7 % (0.0-2.0); EOSINOPHILS 2.1 % (0.0-3.0); HEMATOCRIT 43.1 % (42.0-52.0); HEMOGLOBIN 13.9 gm/dL (14.0-18.0); LYMPHOCYTES 18.1 % (24.0-44.0); MCH 29.2 pg (26.0-34.0); MCHC 32.2 g/dL (28.0-37.0); MCV 90.6 fL (80.0-100.0); MONOCYTES 10.3 % (1.0-8.0); PLATELET COUNT 237 thou/uL (150-400); POLYS 68.8 % (36.0-66.0); RBC 4.76 mil/uL (4.50-6.00); RDW 14.8 % (10.5-14.5); WBC 9.7 thou/uL (4.0-11.0)
[2021-07-25 17:10] LABS: CALCIUM 8.8 mg/dL (8.5-10.1); CREATININE 1.1 mg/dL (0.7-1.3); POTASSIUM 4.2 mmol/L (3.5-5.1)
[2021-07-25 17:20] LABS: ALBUMIN 3.4 g/dL (3.4-5.0); TOTAL BILIRUBIN 0.5 mg/dL (0.2-1.0); TOTAL PROTEIN 7.5 g/dL (6.4-8.2)
[2021-07-25] MEDS ORDERED: DOXYCYCLINE 10100 M2 PO (18:37)
[2021-07-25] MEDS ORDERED: PREDNISONE 20 M20 MG PO (18:37)
[2021-07-25 19:22] VITALS: BP 156/82
--- NOTE | 2021-07-26 07:43 | EKG ---
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: TRIPP : 1960 Requested By: Martin Ramos Order Number: [id number] MD: Kevin Beauchamp Measurements Intervals [place] Rate: 83 P: 56 KS: 170 QRS: 28 QRSD: 84 T: 20 QT: 452 QTc: 532 Interpretive Statements Sinus rhythm Ventricular bigeminy Probable left atrial enlargement Nonspecific T abnrm, anterolateral leads Compared to ECG 07/15/2021 17:10:30 T-wave abnormality no longer present Electronically Signed On 07-26-2021 7:43:19 WAYS OPERATOR by Kevin Beauchamp [email or web address] <ELECTRONICALLY SIGNED> By: Kevin Beauchamp MD, [facility] 07/26/21 0743 1625 1625 Kevin Beauchamp MD, [facility] /EPI
== END 2021-07-25 19:26 | disposition home or self-care (01) ==
LOC: ER 16:18
PROVIDERS: Emergency Medicine
DX: J44.9 Chronic obstructive pulmonary disease, unspecified (principal); Z20.822 Contact with and (suspected) exposure to COVID-19; R06.02 Shortness of breath; I10 Essential (primary) hypertension; F17.210 Nicotine dependence, cigarettes, uncomplicated; Z86.73 Personal history of transient ischemic attack (TIA), and cerebral infarction without residual deficits; Z98.890 Other specified postprocedural states; Z79.82 Long term (current) use of aspirin; Z79.899 Other long term (current) drug therapy; Z79.891 Long term (current) use of opiate analgesic; Z79.1 Long term (current) use of non-steroidal anti-inflammatories (NSAID)

== ENCOUNTER 2021-08-15 18:02 | Inpatient (IN) | payer OTHER ==
[~2021-08-15] VITALS: Ht 185.4 cm; Wt 122.5 kg
--- NOTE | ~2021-08-15 | EMS ---
[address] [address] EMS Patient Care Report Name: LOKESH ANDERSON Room #: REG JOSEPH Olea#: [id number] Admission: 08/15/21 Attend Phys: Discharge: Date of : 56 Report #: [id number] THIS REPORT FOR: //name// Report Transmitted: 08/15/2021 19:31 EMS Care Summary [place], [place]/[facility] Incident [id number] @ 08/15/2021 17:26 Incident Location [address] [place] [address] Patient LOKESH ANDERSON Male, 61 Years 1960 Patient Address [address] [place] [address] Patient History Hypertension (HTN),Substance Abuse,Hyperlipidemia,Gastro-Esophageal Reflux Disease (GERD),Depression,Osteoarthritis, Patient Allergies No known allergies, Patient Medications Memantine, Amlodipine, Pantoprazole, Finasteride, Breonesin, Celebrex, Tamsulosin, Sertraline, Trazodone, Gabapentin, Albuterol, Atorvastatin, Chief Complaint FATIGUE/ SHORTNESS OF BREATH Disposition Transported No Lights/[place] Dispatch Reason Heart Problems/AICD Transported To [facility] Narrative DISPATCHED TO HEART PROBLEMS. ARRIVED ON SCENE TO FIND MALE PATIENT SEATED IN THE FRONT ROOM OF NURSING FACILITY BEING ASSESSED BY FIRE CREW. NURSING STAFF REPORTED THE PATIENT HAVING A HR OF 32 FOR THEM WHEN ASSESSED IT WAS FOUND TO [address] [address] EMS Patient Care Report Name: LOKESH ANDERSON Room #: REG [facility]..#: [id number] Admission: 08/15/21 Attend Phys: Discharge: Date of : 56 Report #: [id number] BE 46 AND THEN INCREASED AND STAYED AROUND 70 FOR THE REST OF EMS CONTACT. PULSES REFLECTED EKG. PATIENT SAID THAT HE WAS MORE FATIGUED THAN NORMAL TODAY WITH SOME SHORTNESS OF BREATH. HE SAID THIS HAS BEEN GOING ON SINCE JUNE AND THAT HE IS SEEING A SAMPLE MAKER BUT DID NOT KNOW WHAT HIS DIAGNOSIS WAS. PATIENT SAID HE IS A LITTLE SHORT OF BREATH NOW. HE WAS FOUND TO HAVE A ROOM AIR OXYGEN SATURATION OF ABOUT 90. PATIENT WAS PLACED ON A NASAL CANNULA. HE WAS ASSISTED IN STANDING AND SITTING ON THE COT, SECURED WITH STRAPS, AND MOVED TO THE AMBULANCE. PATIENT VITALS WERE REOBTAINED ALONG WITH A 12 LEAD. IV WAS ESTABLISHED. PATIENT WAS TRANSPORTED TO THE HOSPITAL WITH VITALS AND INTERVENTIONS MONITORED. DURING TRANSPORT PATIENT SAID HE FELT LIKE THE OXYGEN IS HELPING. UPON ARRIVAL AT THE HOSPITAL PATIENT WAS MOVED TO THE ED ROOM 1 ON THE COT AND ASSISTED IN STANDING AND SITTING ON THE HOSPITAL BED. PATIENT CARE WAS TURNED OVER TO ED NURSING STAFF. Initial Vitals @17:55P: 73,BP: 166/81,SpO2: 97, @17:44P: 66,CO: 1,SpO2: 81, @17:54P: 77,BP: 155/107,CO: 6,SpO2: 95, @17:47P: 69,CO: 2,SpO2: 89,[place] Suspected: false @17:43P: 49,SpO2: 97, @17:44P: 48,R: 18,BP: 161/91,Pain: 0/10,GCS: 15,Glucose: 82,CO: 2,SpO2: 92,Revised Trauma: 12, Assessments @17:41MENTAL:Time Oriented,Place Oriented,Event Oriented,Person Oriented,SKIN:HEENT:Head/Face: No Abnormalities,Neck/Airway: No Abnormalities,LUNG SOUNDS:General: No Abnormalities,Left Upper: No Abnormalities,Right Upper: No Abnormalities,Left Lower: No Abnormalities,Right Lower: No Abnormalities,ABDOMEN:General: No Abnormalities,Left Upper: No Abnormalities,Right Upper: No Abnormalities,Left Lower: No Abnormalities,Right Lower: No Abnormalities,PELVIS//GI:No Abnormalities,EXTREMITIES:Right Leg: Weakness,Left Arm: Weakness,Right Arm: Weakness,Left Leg: Weakness,Capillary Refill: Right Upper: < 2 Sec,PULSE:Radial: 2+ Normal,NEURO:No Abnormalities, Impression Shortness of breath Procedures @17:41 ALS Assessment Response: UnchangedSucceeded @17:43 3-Lead ECG Response: UnchangedSucceeded @17:47 12-Lead ECG Response: UnchangedSucceeded @17:48 IV Therapy - Saline Lock 10cc (20 ga) Site: Antecubital-Left Response: UnchangedSucceeded Timeline [address] [address] EMS Patient Care Report Name: LOKESH ANDERSON Room #: REG JOSEPH Olea#: [id number] Admission: 08/15/21 Attend Phys: Discharge: Date of : 56 Report #: [id number] 17:24,Call Received 17:24,Dispatch Notified 17:26,Dispatched 17:26,En Route 17:39,On Scene 17:41,At Patient 17:41,ALS Assessment,Response: UnchangedSucceeded, 17:43,3-Lead ECG,Response: UnchangedSucceeded, 17:43,BP: / M,PULSE: 49,RR: R,SPO2: 97 Ox,ETCO2: ,BG: ,PAIN: ,GCS: , 17:44,BP: 161/91 M,PULSE: 48,RR: 18 R,SPO2: 92 Ox,ETCO2: ,B,PAIN: 0,GCS: 15, 17:44,BP: / M,PULSE: 66,RR: R,SPO2: 81 Ox,ETCO2: ,BG: ,PAIN: ,GCS: , 17:47,12-Lead ECG,Response: UnchangedSucceeded, 17:47,BP: / M,PULSE: 69,RR: R,SPO2: 89 Ox,ETCO2: ,BG: ,PAIN: ,GCS: , 17:48,IV Therapy - Saline Lock 10cc 20 ga Site: Antecubital-Left,Response: UnchangedSucceeded, 17:51,Depart Scene 17:54,BP: 155/107 M,PULSE: 77,RR: R,SPO2: 95 Ox,ETCO2: ,BG: ,PAIN: ,GCS: , 17:55,BP: 166/81 M,PULSE: 73,RR: R,SPO2: 97 Ox,ETCO2: ,BG: ,PAIN: ,GCS: , 18:05,At Destination 18:15,Call Closed Disclaimer v1.1 Copyright 2021 [employer] This EMS Care Summary contains data elements from the applicable legal record (which may be displayed differently). It is designed to provide pertinent information for the following purposes: continuity of care, clinical quality, and state data reporting. The complete legal record is available to ED staff and administrators of the receiving hospital in [facility]'s Patient Tracker. All data is provided "as is."
--- NOTE | ~2021-08-15 | EMS ---
[address] [address] EMS Patient Care Report Name: LOKESH ANDERSON Room #: REG JOSEPH Olea#: [id number] Admission: 08/15/21 Attend Phys: Discharge: Date of : 56 Report #: [id number] THIS REPORT FOR: //name// Report Transmitted: 08/15/2021 18:29 EMS Care Summary [place], [place]/[facility] Incident [id number] @ 08/15/2021 17:26 Incident Location [address] [place] [address] Patient LOKESH ANDERSON Male, 61 Years 1960 Patient Address [address] [place] [id number] Patient History Hypertension (HTN),Substance Abuse,Hyperlipidemia,Gastro-Esophageal Reflux Disease (GERD),Depression,Osteoarthritis, Patient Allergies No known allergies, Patient Medications Memantine, Amlodipine, Pantoprazole, Finasteride, Breonesin, Celebrex, Tamsulosin, Sertraline, Trazodone, Gabapentin, Albuterol, Atorvastatin, Chief Complaint FATIGUE/ SHORTNESS OF BREATH Disposition Transported No Lights/[place] Dispatch Reason Heart Problems/AICD Transported To [facility] Narrative DISPATCHED TO HEART PROBLEMS. ARRIVED ON SCENE TO FIND MALE PATIENT SEATED IN THE FRONT ROOM OF NURSING FACILITY BEING ASSESSED BY FIRE CREW. NURSING STAFF REPORTED THE PATIENT HAVING A HR OF 32 FOR THEM WHEN ASSESSED IT WAS FOUND TO [address] [address] EMS Patient Care Report Name: LOKESH ANDERSON Room #: REG [facility]..#: [id number] Admission: 08/15/21 Attend Phys: Discharge: Date of : 56 Report #: [id number] BE 46 AND THEN INCREASED AND STAYED AROUND 70 FOR THE REST OF EMS CONTACT. PULSES REFLECTED EKG. PATIENT SAID THAT HE WAS MORE FATIGUED THAN NORMAL TODAY WITH SOME SHORTNESS OF BREATH. 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 PATIENT SAID HE IS A LITTLE SHORT OF BREATH NOW. HE WAS FOUND TO HAVE A ROOM AIR OXYGEN SATURATION OF ABOUT 90. PATIENT WAS PLACED ON A NASAL CANNULA. HE WAS ASSISTED IN STANDING AND SITTING ON THE COT, SECURED WITH STRAPS, AND MOVED TO THE AMBULANCE. PATIENT VITALS WERE REOBTAINED ALONG WITH A 12 LEAD. IV WAS ESTABLISHED. PATIENT WAS TRANSPORTED TO THE HOSPITAL WITH VITALS AND INTERVENTIONS MONITORED. DURING TRANSPORT PATIENT SAID HE FELT LIKE THE OXYGEN IS HELPING. UPON ARRIVAL AT THE HOSPITAL PATIENT WAS MOVED TO THE ED ROOM 1 ON THE COT AND ASSISTED IN STANDING AND SITTING ON THE HOSPITAL BED. PATIENT CARE WAS TURNED OVER TO ED NURSING STAFF. Initial Vitals @17:55P: 73,BP: 166/81,SpO2: 97, @17:44P: 66,CO: 1,SpO2: 81, @17:54P: 77,BP: 155/107,CO: 6,SpO2: 95, @17:47P: 69,CO: 2,SpO2: 89,W[place] Suspected: false @17:43P: 49,SpO2: 97, @17:44P: 48,R: 18,BP: 161/91,Pain: 0/10,GCS: 15,Glucose: 82,CO: 2,SpO2: 92,Revised Trauma: 12, Assessments @17:41MENTAL:Time Oriented,Place Oriented,Event Oriented,Person Oriented,SKIN:HEENT:Head/Face: No Abnormalities,Neck/Airway: No Abnormalities,LUNG SOUNDS:General: No Abnormalities,Left Upper: No Abnormalities,Right Upper: No Abnormalities,Left Lower: No Abnormalities,Right Lower: No Abnormalities,ABDOMEN:General: No Abnormalities,Left Upper: No Abnormalities,Right Upper: No Abnormalities,Left Lower: No Abnormalities,Right Lower: No Abnormalities,PELVIS//GI:No Abnormalities,EXTREMITIES:Right Leg: Weakness,Left Arm: Weakness,Right Arm: Weakness,Left Leg: Weakness,Capillary Refill: Right Upper: < 2 Sec,PULSE:Radial: 2+ Normal,NEURO:No Abnormalities, Impression Shortness of breath Procedures @17:41 ALS Assessment Response: UnchangedSucceeded @17:43 3-Lead ECG Response: UnchangedSucceeded @17:47 12-Lead ECG Response: UnchangedSucceeded @17:48 IV Therapy - Saline Lock 10cc (20 ga) Site: Antecubital-Left Response: UnchangedSucceeded Timeline [address] [address] EMS Patient Care Report Name: LOKESH ANDERSON Room #: REG JOSEPH Olea#: [id number] Admission: 08/15/21 Attend Phys: Discharge: Date of : 56 Report #: [id number] 17:24,Call Received 17:24,Dispatch Notified 17:26,Dispatched 17:26,En Route 17:39,On Scene 17:41,At Patient 17:41,ALS Assessment,Response: UnchangedSucceeded, 17:43,3-Lead ECG,Response: UnchangedSucceeded, 17:43,BP: / M,PULSE: 49,RR: R,SPO2: 97 Ox,ETCO2: ,BG: ,PAIN: ,GCS: , 17:44,BP: 161/91 M,PULSE: 48,RR: 18 R,SPO2: 92 Ox,ETCO2: ,B,PAIN: 0,GCS: 15, 17:44,BP: / M,PULSE: 66,RR: R,SPO2: 81 Ox,ETCO2: ,BG: ,PAIN: ,GCS: , 17:47,12-Lead ECG,Response: UnchangedSucceeded, 17:47,BP: / M,PULSE: 69,RR: R,SPO2: 89 Ox,ETCO2: ,BG: ,PAIN: ,GCS: , 17:48,IV Therapy - Saline Lock 10cc 20 ga Site: Antecubital-Left,Response: UnchangedSucceeded, 17:51,Depart Scene 17:54,BP: 155/107 M,PULSE: 77,RR: R,SPO2: 95 Ox,ETCO2: ,BG: ,PAIN: ,GCS: , 17:55,BP: 166/81 M,PULSE: 73,RR: R,SPO2: 97 Ox,ETCO2: ,BG: ,PAIN: ,GCS: , 18:05,At Destination 18:15,Call Closed Disclaimer v1.1 Copyright 2021 [employer] This EMS Care Summary contains data elements from the applicable legal record (which may be displayed differently). It is designed to provide pertinent information for the following purposes: continuity of care, clinical quality, and state data reporting. The complete legal record is available to ED staff and administrators of the receiving hospital in [employer]'s Patient Tracker. All data is provided "as is."
[~2021-08-15 18:02] MED LIST changes: +DOXYCYCLINE 10100 M2 PO; +PREDNISONE 20 M20 MG PO
[2021-08-15 18:09] VITALS: BP 131/79
[2021-08-15] MEDS ORDERED: BREO ELLIPTA 11 EACH (18:30)
[2021-08-15] MEDS ORDERED: CARVEDILOL6.25 M1 PO (18:30)
[2021-08-15] MEDS ORDERED: CELECOXIB200 MG PO (18:31)
[2021-08-15] MEDS ORDERED: GABAPENTIN600 M1 PO (18:32)
[2021-08-15] MEDS ORDERED: PROAIR HFA8.5 GM INH (18:33)
[2021-08-15 18:37] LABS: ABSOLUTE NEUTROPHILS 4.3 thou/uL (1.4-8.2); BASOPHILS 0.7 % (0.0-2.0); EOSINOPHILS 3.4 % (0.0-3.0); HEMATOCRIT 42.7 % (42.0-52.0); HEMOGLOBIN 13.9 gm/dL (14.0-18.0); LYMPHOCYTES 24.3 % (24.0-44.0); MCH 29.8 pg (26.0-34.0); MCHC 32.6 g/dL (28.0-37.0); MCV 91.6 fL (80.0-100.0); PLATELET COUNT 168 thou/uL (150-400); POLYS 62.6 % (36.0-66.0); RBC 4.67 mil/uL (4.50-6.00); WBC 6.9 thou/uL (4.0-11.0)
[2021-08-15 18:45] LABS: CALCIUM 8.3 mg/dL (8.5-10.1); CREATININE 0.9 mg/dL (0.7-1.3)
[2021-08-15 18:55] LABS: ALBUMIN 3.5 g/dL (3.4-5.0); MAGNESIUM 1.9 mg/dL (1.8-2.4); TOTAL PROTEIN 7.2 g/dL (6.4-8.2)
[2021-08-16 01:58] LABS: CHOLESTEROL 105 mg/dL (<200); HDL CHOLESTEROL 42 mg/dL (>40); LDL CHOLESTEROL 51 mg/dL (<100); TC:HDL 2.5 Ratio (Not establshd); TRIGLYCERIDE 60 mg/dL (<150); VLDL 12 mg/dL (<40)
[2021-08-16 02:15] LABS: SERUM ASSESSMENT Clear
--- NOTE | 2021-08-16 07:00 | NUR ---
RECEIVED PATIENT REPORT FROM LUPE SMITH
[2021-08-16 08:31] VITALS: BP 148/104
--- NOTE | 2021-08-16 08:40 | EKG ---
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 : 1960 Requested By: Janessa Munguia Order Number: [id number] MD: Kevin Beauchamp Measurements Intervals [place] Rate: 79 P: 30 DC: 165 QRS: 27 QRSD: 111 T: 178 QT: 355 QTc: 407 Interpretive Statements Sinus rhythm Ventricular bigeminy Left atrial enlargement Nonspecific T abnrm, anterolateral leads Compared to ECG 07/25/2021 16:25:00 ST (T wave) deviation now present Electronically Signed On 08-16-2021 8:40:06 [employer] by Kevin Beauchamp [email or web address] <ELECTRONICALLY SIGNED> By: Kevin Beauchamp MD, [facility] 08/16/21 0840 [id number] 181 Kevin Beauchamp MD, [facility] /EPI
--- NOTE | 2021-08-16 10:57 | NUR ---
pt O2 titrated down from 2L NC, to 1.5L NC, pt maintaining SPO2 of 98%
--- NOTE | 2021-08-16 12:25 | NUR ---
road test w/o oxygen as ordered by Physician. Pt maintained 90%-96% SPO2 while ambulatory. Pt ambulates well with a steady gait, no staff assistance, uses cane.
[2021-08-16] MEDS ORDERED: TOPROL XL25 MG PO (12:43)
[2021-08-16] MEDS ORDERED: NORVASC5 MG PO (12:43)
[2021-08-16] MEDS ORDERED: BAYER CHEWABLE81 MG PO (12:43)
[2021-08-16 13:19] VITALS: BP 140/94
--- NOTE | 2021-08-16 13:35 | NUR ---
PAGED AND NOTIFIED PHYSICIAN VIA PHONE OF PTS ROAD TEST O2 LEVEL
--- NOTE | 2021-08-16 14:32 | NUR ---
RT REPORTED TO ED TO SEE PT FOR EXERCISE OX ORDERED AT APPROX 1355. RN DID INFORM RT THAT PT HAS BEEN ON ROOM AIR, IS ABLE TO MAINTAIN SPO2, AND THAT EXERCISE OX WAS DONE BY HER (TORY). RN REPORTED PT RESULTS OF EXERCISE OX TO DR. MOHAMUD TO D/C HOME THIS AFTERNOON.
--- NOTE | 2021-08-16 15:38 | NUR ---
SACHA MADERA RN REQUESTED THAT PT MEDICATION TO BE SENT TO [facility] PER THEIR AGREEMENT. MEDS SENT ELECTRONICALLY TO [facility] [phone]. MAMADOU AT [facility] INSTRUCTED [facility] TO CALL THEM AND THEY WOULD SEND PRESCRIPTIONS TO [facility]. SPOKE WITH [facility] [phone], PROVIDED PT INFO, PRESCRIPTION INFO, & [facility] INFORMATION. [facility] REPORTS THEY WILL REACH OUT TO [facility] TO RETRIEVE PRESCRIPTIONS FOR PT DC
[2021-08-16 15:50] VITALS: BP 164/82
--- NOTE | 2021-08-16 15:50 | NUR ---
NURSE TO NURSE REPORT GIVEN TO LUPE JAVIER AT [facility]. YAYA VERBALIZES UNDERSTANING OF D/C INSTRUCTIONS
--- NOTE | 2021-08-16 15:58 | NUR ---
PT ADMITTED RELATED TO DYSPNEA AND UNSTABLE ANGINA. CM REVEIWED CHART AND SPOKE WITH CARE TEAM. CM CALLED AND SPOKE WITH PT THIS DAY. PT INDICATED HE LIVES IN [place] AT [facility]. HE INDICATED HE USES A CANE TO ASSSIT WITH MOBILITY. 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 PT INDICATED THAT PLANED TO RETURN BACK TO [facility] ONCE MEDICALLY STABLE. CM CALLED [facility] AND SPOKE WITH [employer] DON WASN'T THERE. CM CONFIRMED THAT ABOVE INFO. CM INDICATED CARE TEAM ANTICAPTED PT WOULD LIKELY BE MEDICALLY STABLE TO DC BACK THIS DAY. CARE TEAM INDICATED THAT PT WAS MEDICALLY STABLE TO DC HOME TO SELF CARE. PT DIDN'T NEED HOME O2 OF HH. CM HAD ARRANGED [facility] FOR [id number] BUT ER STAFF INDICATED THAT PT WANTED TO TAKE A CAB. CM CANCLED [facility]. CM FAXED DC ORDERS TO [facility]. NO OTHER CM INTERVENTION INDICATED. CASE CLOSED.
[2021-08-17 07:08] LABS: GLYCOHEMOGLOBIN (HGB A1C) 6.2 % (4.8-5.6)
--- NOTE | 2021-08-21 08:00 | HC ---
[facility] [place] [address] CONSULTATION Name: LOKESH ANDERSON Room #: 170-23 DIS IN M.Josee.#: [id number] Admission: 08/15/21 Attend Phys: Elder Carr MD Discharge: 08/16/21 Date of : 56 Report #: [id number] THIS REPORT FOR: cc: Flavia Garcia Shanna R. DO Lundgren, Craig H. MD [facility] ~ DATE OF SERVICE: 08/16/2021 REASON FOR CONSULTATION: Bradycardia. HISTORY OF PRESENT ILLNESS: The patient is a 61-year-old gentleman with a history of polysubstance abuse and hypertension. He had a cerebellar stroke and has been institutionalized at [facility]. He has been seen multiple times with predominantly shortness of breath. Today, he was told at [facility] that he had palpitations. He tells me that he had no such symptom. His EKG on presentation was normal with the exception of ventricular bigeminy. Documented heart rates were 40, although the effective rate was twice this given his isolated ventricular ectopy. He denies near syncope or syncope. He denies palpitations. He has had a long history of intermittent chest pain with multiple emergency room visits. Multiple troponins dating back to 2010 have been all normal. He denies heart failure symptoms including orthopnea, paroxysmal nocturnal dyspnea, or lower extremity edema. Chest pain that he has described has been present for several months, although he is currently pain free when directly questioning him. ALLERGIES: No known drug allergies. MEDICATIONS: Include albuterol, trazodone 100 mg at night, Flomax 0.4 mg daily, sertraline 100 mg daily, Namenda 5 mg daily, gabapentin 3 times a day, finasteride 5 mg daily, Celebrex, carvedilol 6.25 mg twice a day, Breo Ellipta and atorvastatin 20 mg daily. PAST MEDICAL HISTORY: Medical records have been reviewed and include a history of hypertension, stroke, osteoarthritis, BPH, reflux disease, dyslipidemia, polysubstance abuse, history of depression. SOCIAL HISTORY: He is a former smoker, quit about 2 weeks ago. He has a history of alcoholism. History of cocaine, marijuana and methamphetamine use. FAMILY HISTORY: He has 3 children. No history of premature coronary disease. REVIEW OF SYSTEMS: All systems negative except as that noted above. PHYSICAL EXAMINATION: GENERAL: He is a pleasant gentleman. VITAL SIGNS: Blood pressure is 140/90, heart rate of 70 [place] [address] CONSULTATION Name: LOKESH ANDERSON Room #: [address] [place] [address] [place] ..#: [id number] Admission: 08/15/21 Attend Phys: Elder Carr MD Discharge: 08/16/21 Date of : 56 Report #: [id number] afebrile, 6 feet 1 inch tall, 270 pounds, HEENT: Neither xanthelasma, subcutaneous xanthomata, oral mucosal or digital cyanosis or kyphoscoliosis present. CHEST: Clear to auscultation and percussion. CARDIAC: Regular rate and rhythm with normal S1, S2. No murmurs or rubs. ABDOMEN: Soft and nontender. EXTREMITIES: Without cyanosis, clubbing or edema. Radial pulses are 2+. NEUROLOGIC: He is alert with a nonfocal exam. LABORATORY DATA: Sodium 141, potassium 4.0. High-sensitivity troponin of 10, 19, 36. White count 6.9, hemoglobin 13, hematocrit 42, platelet count 168. Influenza screen negative at the end of June. COVID negative. Chest x-ray, no acute process. IMPRESSION: 1. Isolated ventricular ectopy, asymptomatic. 2. Chronic obstructive pulmonary disease. 3. Hypertension. 4. History of polysubstance abuse. 5. Prior stroke. RECOMMENDATIONS: 1. Add amlodipine for blood pressure. 2. No evidence of AL or ischemia both clinically or by serial enzymes, electrocardiographically. Continued efforts towards aggressive risk factor modification. 3. Smoking cessation strongly encouraged. 4. For symptomatic palpitations, we would consider outpatient event recorder such as a Holter monitor. I have discussed these issues with the patient and Dr. Carr. Thank you for asking me to participate in his care. <ELECTRONICALLY SIGNED> By: Bunny March MD, FACC 08/21/21 0800 [id number] 1412 Bunny March MD, FACC /nt
== END 2021-08-16 15:50 | DRG 308 ==
LOC: ER 18:02 → EROBS 22:43
PROVIDERS: Emergency Medicine; Nurse Practitioner Family; ADMIT Internal Medicine; ATTEND Internal Medicine
DX: I49.8 Other specified cardiac arrhythmias (principal); J96.01 Acute respiratory failure with hypoxia; I20.0 Unstable angina; I49.3 Ventricular premature depolarization; R07.89 Other chest pain; F17.210 Nicotine dependence, cigarettes, uncomplicated; M19.90 Unspecified osteoarthritis, unspecified site; K21.9 Gastro-esophageal reflux disease without esophagitis; M22.2X9 Patellofemoral disorders, unspecified knee; N40.0 Benign prostatic hyperplasia without lower urinary tract symptoms; I10 Essential (primary) hypertension; E78.5 Hyperlipidemia, unspecified; F41.9 Anxiety disorder, unspecified; F32.A Depression, unspecified; E55.9 Vitamin D deficiency, unspecified; J44.9 Chronic obstructive pulmonary disease, unspecified; E66.9 Obesity, unspecified; Z86.73 Personal history of transient ischemic attack (TIA), and cerebral infarction without residual deficits; Z68.35 Body mass index [BMI] 35.0-35.9, adult; Z79.899 Other long term (current) drug therapy; Z86.14 Personal history of Methicillin resistant Staphylococcus aureus infection; Z82.49 Family history of ischemic heart disease and other diseases of the circulatory system